=== PATIENT | male | born 1980 | race Caucasian/White ===

== ENCOUNTER 2016-05-11 18:27 | Emergency (ER) | payer MEDICAID ==
[~2016-05-11] VITALS: Ht 177.8 cm; Wt 117.0 kg
[~2016-05-11 18:27] MED LIST: ACET1TAB23 PO; CLIN300C97 PO; IBUP-1482 PO
[2016-05-11] MEDS ORDERED: ASPIRIN 81 MG TAB.CHEW ONE (19:18)
[2016-05-11] MEDS ORDERED: LORAZEPAM 1 MG TABLET ONE (19:18)
[2016-05-11] MEDS ORDERED: LORAZEPAM 1 MG TABLET PO ONE (19:30)
[2016-05-11] MEDS ORDERED: ASPIRIN 81 MG TAB.CHEW PO ONE (19:30)
[2016-05-11 19:52] LABS: ANION GAP 12 (5-14); CALCIUM, SERUM 9.2 mg/dL (8.5-10.1); CARBON DIOXIDE 30 mmol/L (21-32); CHLORIDE 103 mmol/L (98-107); CREATININE 1.2 mg/dL (0.6-1.3); GFR 70 mL/min (>60); GLUCOSE 94 mg/dL (74-106); POTASSIUM 4.2 mmol/L (3.5-5.1); SODIUM SERUM 140 mmol/L (136-145); UREA NITROGEN, BLOOD 15 mg/dL (7-18)
[2016-05-11 19:59] LABS: PROTHROMBIN TIME 10.8 SECS (9.5-12.7)
[2016-05-11 20:02] LABS: TROPONIN I < 0.017 ng/mL (0.00-0.056)
[2016-05-11 20:37] LABS: BASOPHILS % (AUTO) 0.3 % (0.0-2.0); DIFF TOTAL % 100 %; EOSINOPHILS # (AUTO) 0.1 /CMM (0.0-0.7); EOSINOPHILS % (AUTO) 0.9 % (0.0-6.0); HEMATOCRIT 44 % (39-51); HEMOGLOBIN 14.7 g/dL (13.5-17.5); LYMPHOCYTES # (AUTO) 1.7 /CMM (0.8-4.8); LYMPHOCYTES % (AUTO) 20.3 % (20.0-44.0); MEAN CORPUSCULAR HEMOGLOBIN 29 PG (26.0-33.0); MEAN CORPUSCULAR HGB CONC 33 g/dl (31.0-36.0); MEAN CORPUSCULAR VOLUME 87 fL (80-96); MONOCYTES # (AUTO) 0.7 /CMM (0.1-1.30); MONOCYTES % (AUTO) 8.3 % (2.0-12.0); NEUTROPHILS # (AUTO) 5.7 /CMM (1.8-8.9); NEUTROPHILS % (AUTO) 70.2 % (43.0-81.0); PLATELET COUNT (AUTO) 182 /CMM (150-450); RED BLOOD CELL COUNT(AUTO) 5.08 MIL/uL (4.5-6.0); WHITE BLOOD COUNT (AUTO) 8.2 K/uL (4.3-11.0)
[2016-05-11 21:20] VITALS: BP 122/84
== END 2016-05-11 21:21 | disposition home or self-care (01) ==
LOC: ER 18:29
DX: R07.9 Chest pain, unspecified (principal); F41.9 Anxiety disorder, unspecified; E78.00 Pure hypercholesterolemia, unspecified
CPT/HCPCS: 36415; 71010; 80048; 84484; 85025; 85730; 93005; 99285; A4606; Z7610